=== PATIENT | male | born 2000 | race Two or more races ===

== ENCOUNTER → 2024-07-11 | Outpatient (CLI) | payer SELFPAY ==
[2024-07-11 18:28] LABS: HIV (1&2) Antibody Rapid Non-Reactive
== END | disposition home or self-care (01) ==
PROVIDERS: PCP Family Medicine; Referring Provider Registered Nurse Community Health; Visit Provider Registered Nurse Community Health
DX: Z20.2 Contact with and (suspected) exposure to infections with a predominantly sexual mode of transmission (principal)
CPT/HCPCS: 36415; 86703

== ENCOUNTER → 2025-02-11 | Outpatient (CLI) | payer BC, SELFPAY ==
--- NOTE | 2025-02-11 | XR_ITS ---
Examination: Right hip AP, lateral, AP pelvis 3 views Technique: Hip AP lateral, AP pelvis, 3 views Exam date and time: February 11, 2025, 12:11 p.m INDICATION: Right hip pain beginning 1 year ago. FINDINGS: Mild narrowing hip joints No right or left hip fracture or dislocation No avascular necrosis IMPRESSION: Mild narrowing hip joints.
== END | disposition home or self-care (01) ==
LOC: CDIM 11:36
PROVIDERS: PCP Internal Medicine; Referring Provider Internal Medicine; Visit Provider Internal Medicine
DX: M25.851 Other specified joint disorders, right hip (principal)
CPT/HCPCS: 73502